=== PATIENT | male | born 1945 | race Caucasian/White ===

== ENCOUNTER 2019-01-24 12:50 | Observation (INO) ==
[2019-01-24 14:10] LABS: Basophils # (auto) 0.03 K/uL (0-0.2); Basophils % (auto) 0.5 %; Eosinophils # (auto) 0.12 K/uL (0-0.5); Eosinophils % (auto) 1.9 %; Hematocrit (blood only) 45.4 % (42-52); Hemoglobin 15.7 g/dL (14.0-18.0); Immature Granulocytes # (auto) 0.05 K/uL (0.00-0.02); Immature Granulocytes % (auto) 0.8 %; Lymphocytes # (auto) 1.51 K/uL (1.2-3.4); Lymphocytes % (auto) 24.2 %; Mean Corpuscular Hgb Conc 34.6 g/dL (32-36); Mean Corpuscular Volume 89.7 fL (80-100); Mean Platelet Volume 8.5 fL (7.4-10.4); Monocytes # (auto) 0.46 K/uL (0.11-0.59); Monocytes % (auto) 7.4 %; Neutrophils # (auto) 4.06 K/uL (1.4-6.5); Neutrophils % (auto) 65.2 %; Platelet Count 168 K/uL (130-400); RDW Coefficient of Variation 14.2 % (11.5-14.5); RDW Standard Deviation 46.3 fL (36.4-46.3); Red Blood Count 5.06 M/uL (4.7-6.1); White Blood Count 6.23 K/uL (4.8-10.8)
[2019-01-24] MEDS ORDERED: NITROGLYCERIN SL 0.4 MG/TAB TAB SL STA (14:13)
[2019-01-24] MEDS ORDERED: ACETAMINOPHEN 500 MG TAB PO STA (14:13)
[2019-01-24] MEDS ORDERED: ASPIRIN CHEW 324 MG PO STA (14:13)
[2019-01-24] MEDS ORDERED: NITROGLYCERIN SL 0.4 MG/TAB TAB SL PRN ×2 (14:13→21:43)
--- NOTE | 2019-01-24 14:32 | XRay Report ---
SINGLE VIEW CHEST CLINICAL HISTORY: Atypical chest pain. FINDINGS: An AP, portable, upright chest radiograph is obtained. No prior studies are available for c omparison at the time of dictation. The examination is degraded by portable technique and patient rot ation. The heart is enlarged noting atherosclerotic calcification of the thoracic aorta. The pulmona ry vasculature is noncongested. There is mild left basilar atelectasis. The lungs and pleural spaces are otherwise clear. No pneumothorax is seen. The skeletal structures are osteopenic. The bony thorax is grossly intact. IMPRESSION: Cardiomegaly with no acute cardiopulmonary abnormality. Electronically signed by: Jm Aguirre M.D. 01/24/2019 2:31 PM
[2019-01-24 14:34] LABS: Alanine Aminotransferase 28 U/L (12-78); Albumin Level 3.9 gm/dl (3.4-5.0); Alkaline Phosphatase 87 U/L (45-117); Aspartate Aminotransferase 21 U/L (15-37); BUN Creatinine Ratio 13.6 (10-20); Bilirubin,Total 0.4 mg/dl (0.2-1); Blood Urea Nitrogen 15 mg/dl (7-18); Calcium 9.8 mg/dl (8.5-10.1); Carbon Dioxide 27 mmol/L (21-32); Chloride 110 mmol/L (98-107); Creatinine Clr Calc Pharmacy 62.4 ml/min; Globulin 3.9 gm/dl (2.5-4.0); Glucose 99 mg/dl (70-99); Lipase 192 U/L (73-393); Potassium 4.2 mmol/L (3.5-5.1); Sodium 146 mmol/L (136-145); Total Protein 7.8 gm/dl (6.4-8.2); Troponin I < 0.015 ng/ml (0-0.045)
--- NOTE | 2019-01-24 18:02 | Emergency Department Note ---
Entered by Kina Vasquez acting as a scribe for History of Present Illness General Chief complaint: Chest Pain Stated complaint: CHEST TIGHTNESS, LT SHOULDER PAIN- CARDIAC HX Time Seen by Provider: 01/24/19 13:24 Source: patient and family () History of Present Illness Onset (ago): day(s) 4 Location: chest Radiation: other (left shoulder) Severity: similar to prior episodes (when he had a stent placed in 2011 ) Quality: + other (chest pain, (like a guitar string)) Associated symptoms: + other (Positive neck tightness. Negative recent trauma to his neck, recent swelling in his legs); no cough and no fever/chills The patient is a 73 white male w/ PMHx of 1 heart stent who presents to the ED w/ CC of chest pain beginning 4 days [employer]. He notes that beginning 4 days ago, his chest began hurting which he describes as an ache with radiation to his left arm. Currently, the patient states his neck feels tight, "like a guitar string." He reports that this episode of chest pain feels similar to when he needed to have a stent placed in 2011. Pt denies any cough, fevers, chills, recent trauma to his neck, recent swelling in his legs. He notes that 4 days ago, he went to the ED in [place] and was there until 1500 that day. He reports they did 3 blood tests and 2 EKGs and there was an abnormality on one of them. Home Medications Home Medications Medication Instructions Recorded Confirmed Type Zyrtec 10 mg PO DAILY 01/24/19 01/24/19 History aspirin 81 mg PO DAILY 01/24/19 01/24/19 History nmje-bnwkls-eogqghbt-D3-C-Mn 1 cap PO DAILY 01/24/19 01/24/19 History magnesium 250 mg PO DAILY 01/24/19 01/24/19 History omeprazole 0 mg PO DAILY 01/24/19 01/24/19 History potassium 0 mg PO DAILY 01/24/19 01/24/19 History sucralfate 0 g PO DAILY 01/24/19 01/24/19 History turmeric 400 mg PO DAILY 01/24/19 01/24/19 History cyclobenzaprine 5 mg PO BID PRN 3 Days #6 tab 01/25/19 Rx nitroglycerin [Nitrostat] 0.4 mg SUBLINGUAL Q5M PRN 3 Days 01/25/19 Rx #10 tab Allergies Allergy/AdvReac Type Severity Reaction Status Date / Time wheat Allergy Severe Unknown Verified 01/25/19 09:25 red dye AdvReac Mild Hives Unverified 01/24/19 14:28 Past Med/Surg History Medical History No significant past medical history Surgical History H/O heart artery stent Family History Other Family history non-contributory Social History Preferred Language: Albanian Communication Ability: Effective Release Manager Required: No Beliefs That Will Affect Care: None marital status: Current Living Situation: Alone Feels Safe at Home: Yes Smoking Status: Never smoker Second Hand Exposure: No ; Hx Alcohol Use: Yes Alcohol type: beer Hx Substance Use: No Review of Systems See HPI for pertinent positives & negatives. and A total of 10 systems reviewed and were otherwise negative Physical Exam Vital Signs Vital Signs - 24 hr 01/24/19 19:30 01/24/19 20:00 01/24/19 20:30 Pulse Rate 61 59 L 63 Pulse Rate from SpO2 Sensor 59 L 58 L 65 Respiratory Rate 20 14 18 Blood Pressure 127/61 130/58 L 132/64 Blood Pressure Mean 83 82 86 Pulse Oximetry 95 96 94 GENERAL: Well appearing, well nourished, NAD, non-toxic. Wearing glasses. EYE EXAM: Normal conjunctiva. PERRL, no anisocoria and EOM's grossly intact w/o pain. OROPHARYNX: Moist mucous membranes. Grossly normal dentition. NECK: Supple, no nuchal rigidity, no adenopathy, non-tender. No signs of meningismus. LUNGS: Clear to auscultation. Normal chest wall mechanics. HEART: NSR, no MRG. ABDOMEN: Abdomen soft, non-tender, normo-active bowel sounds, no masses, no rebound or guarding. BACK: No CVA TTP. SKIN: No rashes and no bruising. UPPER EXTREMITIES: Upper extremities are grossly normal. LOWER EXTREMITIES: No pitting edema. No calf pain. Negative Homans sign NEURO EXAM: A&O x3, cranial nerves II-XII grossly intact, normal speech, moves all 4 extremities on command w/o issue. Course 1342: Past medical records reviewed. The patient was evaluated in room C7. A complete history and physical exam was performed. 1416: On 01/20/19, his troponin was not elevated. 1530: I checked on the patient at this time. His chest pain is resolved. 1535: Heart score of 6. Puts him at moderate risk for a cardiac event. 1550: I discussed the patients case with Dr. Dumont, [facility] Hospitalist. She will evaluate the patient for further management. 1625: Nursing staff states he had a reoccurrence of chest pain. Will repeat Nitro. Administered Medications Discontinued Medications Acetaminophen (Tylenol) 1,000 mg PO NOW STA Stop: 01/24/19 14:14 Last Admin: 01/24/19 14:22 Dose: 1,000 mg Documented by: [id number] Aspirin (Aspirin) 324 mg PO NOW STA Stop: 01/24/19 14:14 Last Admin: 01/24/19 14:22 Dose: 324 mg Documented by: [id number] Aspirin (Ecotrin Ectab) 81 mg PO DAILY TATY Stop: 02/24/19 08:59 Last Admin: 01/25/19 10:26 Dose: 81 mg Documented by: [id number] Cetirizine HCl (Zyrtec) 10 mg PO DAILY TATY Stop: 02/24/19 08:59 Last Admin: 01/25/19 10:26 Dose: 10 mg Documented by: [id number] Enoxaparin Sodium (Lovenox) 40 mg SQ Q24H TATY Stop: 02/24/19 08:59 Last Admin: 01/25/19 10:26 Dose: 40 mg Documented by: [id number] Magnesium Oxide (Mag-Ox) 400 mg PO DAILY TATY Stop: 02/24/19 08:59 Last Admin: 01/25/19 10:26 Dose: 400 mg Documented by: [id number] Miscellaneous (Order Awaiting Action) 1 ea N/A QS TATY Stop: 02/24/19 00:00 Last Admin: 01/25/19 15:55 Dose: Not Given Documented by: [id number] Admin: 01/25/19 10:29 Dose: Not Given Documented by: [id number] Admin: 01/24/19 23:16 Dose: Not Given Documented by: [id number] Nitroglycerin (Nitrostat) 0.4 mg SL NOW STA Stop: 01/24/19 14:14 Last Admin: 01/24/19 14:22 Dose: 0.4 mg Documented by: [id number] Nitroglycerin (Nitrostat) 0.4 mg SL PRN PRN PRN Reason: Chest Pain Stop: 02/23/19 14:12 Last Admin: 01/24/19 16:24 Dose: 0.4 mg Documented by: [id number] Pantoprazole Sodium (Protonix) 40 mg PO DAILY TATY Stop: 02/24/19 08:59 Last Admin: 01/25/19 10:26 Dose: 40 mg Documented by: [id number] Sucralfate (Carafate Tab) 0 gm PO DAILY TATY Stop: 02/24/19 08:59 Last Admin: 01/25/19 10:25 Dose: 1 gm Documented by: [id number] Medical Decision Making Medical Records Attestation: I reviewed the patient's medical records. Home Medications Current Medication List: was personally reviewed by me Laboratory Data Attestation: I reviewed the patient's lab results. Result diagrams: 01/25/19 03:53 01/25/19 03:53 Lab Results 01/24/19 01/24/19 Range/Units 13:49 13:49 WBC 6.23 (4.8-10.8) K/uL RBC 5.06 (4.7-6.1) M/uL Hgb 15.7 (14.0-18.0) g/dL Hct 45.4 (42-52) % MCV 89.7 (80-100) fL MCH 31.0 (25-34) pg MCHC 34.6 (32-36) g/dL RDW Std Deviation 46.3 (36.4-46.3) fL RDW Coeff of Shellie 14.2 (11.5-14.5) % Plt Count 168 (130-400) K/uL MPV 8.5 (7.4-10.4) fL Immature Gran % (Auto) 0.8 % Neut % (Auto) 65.2 % Lymph % (Auto) 24.2 % [place] % (Auto) 7.4 % Eos % (Auto) 1.9 % Baso % (Auto) 0.5 % Immature Gran # (Auto) 0.05 H (0.00-0.02) K/uL Neut # (Auto) 4.06 (1.4-6.5) K/uL Lymph # (Auto) 1.51 (1.2-3.4) K/uL [place] # (Auto) 0.46 (0.11-0.59) K/uL Eos # (Auto) 0.12 (0-0.5) K/uL Baso # (Auto) 0.03 (0-0.2) K/uL Sodium 146 H (136-145) mmol/L Potassium 4.2 (3.5-5.1) mmol/L Chloride 110 H (98-107) mmol/L Carbon Dioxide 27 (21-32) mmol/L Anion Gap 9.0 (3-11) BUN 15 (7-18) mg/dl Creatinine 1.07 (0.6-1.4) mg/dl Est Cr Clr Drug Dosing 62.4 ml/min Est GFR ( Amer) 80.0 Est GFR (Non-Af Amer) 69.0 BUN/Creatinine Ratio 13.6 (10-20) Glucose 99 (70-99) mg/dl Calcium 9.8 (8.5-10.1) mg/dl Total Bilirubin 0.4 (0.2-1) mg/dl AST 21 (15-37) U/L ALT 28 (12-78) U/L Alkaline Phosphatase 87 (45-117) U/L Troponin I < 0.015 (0-0.045) ng/ml Total Protein 7.8 (6.4-8.2) gm/dl Albumin 3.9 (3.4-5.0) gm/dl Globulin 3.9 (2.5-4.0) gm/dl Albumin/Globulin Ratio 1.0 (0.9-2) Lipase 192 (73-393) U/L Specimen Hemolysis Imaging Data Radiologist's Impression: Radiology results as stated below per my review and the radiologist's interpretation: SINGLE VIEW CHEST CLINICAL HISTORY: Atypical chest pain. FINDINGS: An AP, portable, upright chest radiograph is obtained. No prior studies are available for comparison at the time of dictation. The examination is degraded by portable technique and patient rotation. The heart is enlarged noting atherosclerotic calcification of the thoracic aorta. The pulmonary vasculature is noncongested. There is mild left basilar atelectasis. The lungs and pleural spaces are otherwise clear. No pneumothorax is seen. The skeletal structures are osteopenic. The bony thorax is grossly intact. IMPRESSION: Cardiomegaly with no acute cardiopulmonary abnormality. Electronically signed by: Jm Aguirre M.D. 01/24/2019 2:31 PM ECG Data Attestation: I personally reviewed and interpreted this ECG as follows: Indication: chest pain Rate (beats per minute): 64 Rhythm: normal sinus Findings: + other (wide QRS, no ST segment changes ) and + RBBB; no T-wave inversion Additional Comments: Repeat EKG done at 1627: unchanged when compared to prior Blood Pressure Blood Pressure Findings: Elevated blood pressure Blood Pressure Disposition: further management by hospitalist MDM Narrative The patient is a 73 white male w/ PMHx of 1 heart stent who presents to the ED w/ CC of chest pain beginning 4 days [employer]. Differential diagnosis: Etiologies such as cardiac ischemia, aortic dissection, pulmonary embolism, pneumonia, pneumothorax, musculoskeletal, infections, pericarditis, myocarditis, esophageal rupture, gastrointestinal, as well as others were entertained. Patient was seen and evaluated the bedside. The patient does have a known history of CAD status post stent placement in 2011 in [facility] wit h a stent to the left circumflex. The patient does take a baby aspirin. Patient does have hypertension hyperlipidemia. The patient states that his symptoms are similar to when he required a prior stent in 2011. Patient does complain of some left-sided chest pain with radiation to the neck. The patient has had nausea but no diaphoresis or vomiting. Patient is unsure as whether or not it is exertional. Patient did have a recent episode observation at a small emergency department that did not have a neurology tech on staff. Patient reportedly had negative troponins and was discharged. Patient did not have any more provocative testing. Patient's EKG shows nonspecific changes no prior to compare to. Troponin is undetectable. The patient did receive nitro and aspirin he had resolution of his chest pain. Patient does have a heart score of 6 the decision was made for the patient to be observed with continued trending of his enzymes and likely cardiology consultation in the morning. Patient was admitted to the medicine service for observation treatment. Prior to going to his room patient did have a recurrence of chest pain for which she did receive nitro. The patient's repeat EKG did not show any acute changes. Patient was admitted to the medicine service. Impression & Plan Atypical chest pain, History of coronary artery stent placement Discharge Plan Visit Data *Final* Discharge Date/Time: 01/24/19 21:16 Chief Complaint: Chest Pain Stated Complaint: CHEST TIGHTNESS, LT SHOULDER PAIN- CARDIAC HX ED Provider: Terry Rob Discharge Problem: Atypical chest pain, History of coronary artery stent placement Patient Disposition: Admitted As Inpatient Condition: Good Discharge Instructions Interventions: ED Discharge Assessment Last Done: 01/24/19 21:16 The scribe's documentation has been prepared under my direction and personally reviewed by me in its entirety. I confirm that the note above accurately reflects all work, treatment, procedures, and medical decision making performed by me.
--- NOTE | 2019-01-24 20:58 | History & Physical Report ---
Date of Service January 24, 2019 Assessment & Plan (1) Atypical chest pain: Admit to PCU on telemetry for observation Vital signs every 4 hours Troponin every 6 hours with EKG Lipid panel A1c, TSH, CBC CMP BNP TTE DVT prophylaxis with Lovenox 40 mg subcu 2 daily Full code Present on Admission?: Yes (2) History of coronary artery stent placement: Continue aspirin 81 p.o. daily, patient is not taking anything for hypercholesterolemia he states that he is sensitive to statins and that is why he does not take it. He reports being confused and statins. History of Present Illness Chief Complaint: Chest pain Primary Care Provider: NO PCP Patient is a 73 years old male with past medical history of coronary artery stent placed in 2011. Patient reports that his pain started around 3 AM and lasted up until 7AM when his called ambulance. Patient said that pain has been ongoing for 4 days. He describes pain that is radiated to his neck and his left arm. After he arrived in the emergency room he reports no chest pain anymore. The chest pain patient experienced at 3 AM this morning is similar to one that he experienced in [address] the stent was placed. Patient denies fever chills headache chest pain at this time abdominal pain frequency urgency recent trauma to his neck swelling of his lower extremities syncope and near syncope. Labs are reviewed: CBC normal, sodium slightly elevated 146 potassium 4.2 chloride 110 creatinine 1.07 GFR 69, troponin less than 0.015. EKG normal sinus rhythm with right bundle branch block there is no other EKG for comparison. Chest x-rays cardiomegaly with no acute cardiopulmonary abnormality. The case was discussed and decision was made to admit patient for observation on telemetry to rule out ACS. Allergies Allergy/AdvReac Type Severity Reaction Status Date / Time red dye AdvReac Mild Hives Unverified 01/24/19 14:28 Home Medications Home Medications Medication Instructions Recorded Confirmed Type aspirin 81 mg PO DAILY 01/24/19 01/24/19 History cetirizine [Zyrtec] 10 mg PO DAILY 01/24/19 01/24/19 History uyju-rlthyl-padvunpn-D3-C-Mn 1 cap PO DAILY 01/24/19 01/24/19 History magnesium 250 mg PO DAILY 01/24/19 01/24/19 History omeprazole 0 mg PO DAILY 01/24/19 01/24/19 History potassium 0 mg PO DAILY 01/24/19 01/24/19 History sucralfate 0 g PO DAILY 01/24/19 01/24/19 History turmeric 400 mg PO DAILY 01/24/19 01/24/19 History Past Med/Surg History Medical History No significant past medical history Surgical History H/O heart artery stent Family History Other Family history non-contributory Social History marital status: Feels Safe at Home: Yes Smoking Status: Never smoker Review of Systems Review of Systems: All systems reviewed & are unremarkable except as noted in HPI & below Physical Exam Constitutional: WD/WN, vitals as above well developed Eyes: PERRL, conjunctivae normal, anicteric sclerae ENMT: external ear and nose normal, oropharynx normal Neck: trachea midline, no thyromegaly Respiratory: normal respiratory effort, lungs clear to auscultation Cardiovascular: RRR, no murmur, no edema Gastrointestinal (Abdomen): normal bowel sounds, soft, nontender, no hepatosplenomegaly Musculoskeletal: no cyanosis or clubbing, extremities motor strength 5/5 Skin: no rashes, warm and dry Neurologic: patellar DTR's 2+ bilat, sensation intact Psychiatric: A+Ox3, euthymic affect Lymphatic: no cervical or axillary lymphadenopathy Results & Data Vital Signs (Past 12 Hours) Vital Signs Temp Pulse Pulse Resp BP BP Pulse Ox 01/24/19 19:30 61 20 127/61 95 01/24/19 18:30 20 134/61 97 01/24/19 18:14 57 L 16 128/67 96 01/24/19 18:00 58 L 18 128/67 97 01/24/19 16:29 66 18 119/61 93 01/24/19 15:52 69 18 108/69 98 01/24/19 14:30 62 18 134/68 99 01/24/19 13:00 37 C 66 20 128/70 98 Code Status & VTE Plan Code Status Full code VTE Prophylaxis Plan VTE Prophylaxis will be ordered: Yes PG Care Time/CCT Total # of Minutes Spent Total Time Spent with Patient: Total time spent is greater than 50% in coordination of care (as documented) at patient's floor/unit and/or counseling patient:
[2019-01-24] MEDS ORDERED: ACETAMINOPHEN 325 MG TAB PO PRN (21:43)
[2019-01-24] MEDS ORDERED: ZOLPIDEM TARTRATE 5 MG TAB PO PRN (21:43)
[2019-01-24] MEDS ORDERED: POLYETHYLENE (MIRALAX) 17 GM PACK PO PRN (21:43)
[2019-01-25 04:21] LABS: Basophils # (auto) 0.01 K/uL (0-0.2); Basophils % (auto) 0.2 %; Eosinophils # (auto) 0.15 K/uL (0-0.5); Hematocrit (blood only) 40.9 % (42-52); Hemoglobin 14.2 g/dL (14.0-18.0); Immature Granulocytes # (auto) 0.05 K/uL (0.00-0.02); Lymphocytes # (auto) 1.68 K/uL (1.2-3.4); Lymphocytes % (auto) 33.4 %; Mean Corpuscular Hemoglobin 30.8 pg (25-34); Mean Corpuscular Hgb Conc 34.7 g/dL (32-36); Mean Corpuscular Volume 88.7 fL (80-100); Mean Platelet Volume 8.1 fL (7.4-10.4); Monocytes # (auto) 0.56 K/uL (0.11-0.59); Monocytes % (auto) 11.1 %; Neutrophils # (auto) 2.58 K/uL (1.4-6.5); Neutrophils % (auto) 51.3 %; Platelet Count 139 K/uL (130-400); RDW Standard Deviation 45.3 fL (36.4-46.3); Red Blood Count 4.61 M/uL (4.7-6.1); White Blood Count 5.03 K/uL (4.8-10.8)
[2019-01-25 04:42] LABS: Alanine Aminotransferase 22 U/L (12-78); Albumin Level 3.1 gm/dl (3.4-5.0); Aspartate Aminotransferase 14 U/L (15-37); BUN Creatinine Ratio 18.1 (10-20); Blood Urea Nitrogen 18 mg/dl (7-18); Calcium 9.1 mg/dl (8.5-10.1); Carbon Dioxide 26 mmol/L (21-32); Chloride 111 mmol/L (98-107); Cholesterol 197 mg/dl (0-200); Creatinine Clr Calc Pharmacy 77.4 ml/min; Est GFR (African American) 88.9; Est GFR (Non-African American) 76.7; Glucose 86 mg/dl (70-99); Potassium 3.9 mmol/L (3.5-5.1); Sodium 145 mmol/L (136-145); Triglycerides 322 mg/dl (0-150); VLDL Cholesterol 64 mg/dl
[2019-01-25 04:48] LABS: Alkaline Phosphatase 67 U/L (45-117); Bilirubin,Total 0.4 mg/dl (0.2-1); Chol HDL Ratio 5; Globulin 3.3 gm/dl (2.5-4.0); HDL Cholesterol 41 mg/dl; LDL Cholesterol Calculated 92 mg/dl; NT Pro B Type Natriuretic Pept 58 pg/ml (0-900); Total Protein 6.4 gm/dl (6.4-8.2); Troponin I < 0.015 ng/ml (0-0.045)
[2019-01-25 06:27] LABS: Estimated Average Glucose 105 mg/dl; Hemoglobin A1C 5.3 % (4.5-5.6)
[2019-01-25] MEDS ORDERED: PANTOprazole 40 MG TAB PO SCH (09:00)
[2019-01-25] MEDS ORDERED: GLUC CHONDR COLLAGEN D3 C MN PO SCH (09:00)
[2019-01-25] MEDS ORDERED: NON-FORMULARY MEDICATION (Turmeric 400 MG) PO SCH (09:00)
[2019-01-25] MEDS ORDERED: ASPIRIN 81 MG ECTAB PO SCH (09:00)
[2019-01-25] MEDS ORDERED: ENOXAPARIN INJ 40 MG/0.4 ML SYR SQ SCH (09:00)
[2019-01-25] MEDS ORDERED: CETIRIZINE HCL 10 MG TABLET PO SCH (09:00)
[2019-01-25] MEDS ORDERED: SUCRALFATE 1 GM TAB PO SCH (09:00)
[2019-01-25] MEDS ORDERED: MAGNESIUM OXIDE 400 MG TAB PO SCH (09:00)
[2019-01-25] MEDS ORDERED: CYCLOBENZAPRINE HCL 5 MG TAB PO PRN (10:16)
--- NOTE | 2019-01-25 12:35 | Cardiology Consultation ---
Date of Consultation January 25, 2019 Assessment & Plan (1) Atypical chest pain: While the character of his chest pain is concerning for ischemia or coronary insufficiency, the extended duration of his symptoms without elevation of his biomarkers suggests otherwise. I do not believe this was cardiac in nature. It is possible this represents a gastrointestinal disturbance does have a history of reflux and esophageal spasm. He does not have symptoms otherwise of coronary artery disease such as coronary insufficiency or angina with activity. His echocardiogram did not demonstrate any wall motion abnormalities. Based on the nature of the symptoms, his good exercise tolerance and the normal biomarkers, I do not feel he requires any additional evaluation as an inpatient. (2) Coronary artery disease: He does not have other symptoms suggestive of coronary insufficiency or recurrent stenosis. His medical regimen consists only of aspirin. It seems that in the past he has tried both rosuvastatin and atorvastatin with adverse side effects. He was referred for Repatha and is working on obtaining this through the [facility] system. (3) Aortic regurgitation: Moderate on current echocardiogram. Preserved LV systolic function without significant chamber dilation. This can be monitored over time. History of Present Illness Reason for Consultation: Chest pain Requesting Physician: Yanira Attending Physician: Katheryn Doyle MD History of Present Illness Patient is a 71-year-old gentle with history of coronary disease having previously undergone percutaneous intervention in 2011. It seems at that time the patient had an episode neck and jaw discomfort which prompted hospitalization. He previously undergone stress testing which was normal and subsequently underwent coronary angiography which revealed the aforementioned stenosis. Since that time the patient is actually done quite well. He is a very active individual who was accustomed to strenuous activity. Recently he was digging a ditch and working on his home without symptoms of chest discomfort or limiting dyspnea. He generally does not have symptoms of chest discomfort. However, approximately 4 days ago while at rest he began to experience symptoms of substernal chest pressure with neck and jaw discomfort as well. The symptoms prompted an evaluation in local hospital. That evaluation was unrevealing and the patient was sent home. His symptoms persisted and he sought medical attention at our facility. Seems that the use of nitroglycerin both previously and at the time of his admission here to did not relieve his symptoms. I did produce a headache. Symptoms appear to have resolved without any specific intervention is currently pain-free. He does have some persistent left scapular discomfort. He believes this is related to muscle pain. He denies any history of palpitation. He denies dizziness or lightheadedness. He has not suffered syncope. He denies orthopnea but does keep his bed elevated slightly due to reflux. He will get occasional symptoms of esophageal spasm but these appear to be quite rare. Allergies Allergy/AdvReac Type Severity Reaction Status Date / Time wheat Allergy Severe Unknown Verified 01/25/19 09:25 red dye AdvReac Mild Hives Unverified 01/24/19 14:28 Home Medications Home Medications Medication Instructions Recorded Confirmed Type aspirin 81 mg PO DAILY 01/24/19 01/24/19 History cetirizine [Zyrtec] 10 mg PO DAILY 01/24/19 01/24/19 History devs-[id number]-[id number]-D3-C-Mn 1 cap PO DAILY 01/24/19 01/24/19 History magnesium 250 mg PO DAILY 01/24/19 01/24/19 History omeprazole 0 mg PO DAILY 01/24/19 01/24/19 History potassium 0 mg PO DAILY 01/24/19 01/24/19 History sucralfate 0 g PO DAILY 01/24/19 01/24/19 History turmeric 400 mg PO DAILY 01/24/19 01/24/19 History Patient History Medical History No significant past medical history Surgical History H/O heart artery stent Family History Other Family history non-contributory Social History Preferred Language: Japanese Communication Ability: Effective Register Repairer Required: No Beliefs That Will Affect Care: None marital status: Current Living Situation: Alone Feels Safe at Home: Yes Smoking Status: Never smoker Second Hand Exposure: No ; Hx Alcohol Use: Yes Alcohol type: beer Hx Substance Use: No Review of Systems Review of Systems: All systems reviewed & are unremarkable except as noted in HPI & below Per HPI. He does not report dysphagia or odynophagia. He has normal bowel habits and is not constipated. Physical Exam Physical Exam: The patient is alert and oriented. Mood and affect appeared normal. He answered all questions appropriately. HEENT: Pupils are equal and reactive to light and accommodation. Extraocular movements are intact. The sclerae are anicteric. Neuro: Cranial nerves intact Neck: Patient's neck is supple. He has palpable carotid pulses bilaterally without bruits on auscultation. There is no evidence of jugular venous distention. The thyroid is not enlarged. Lungs: Clear to auscultation bilaterally. He has good air movement without use of accessory muscles. No rales wheezes or rhonchi. Cardiac: Heart demonstrates a regular rate and rhythm. Normal S1 and S2. Soft ejection murmur. Pulses: The patient has palpable radial pulses bilaterally that are equal in intensity Extremities: There was no evidence of hypoperfusion. There is no cyanosis or c lubbing. There is no edema. Skin: I did not appreciate any rashes on examination today. Results & Data Vital Signs (Past 12 Hours) Vital Signs Temp Pulse Pulse Resp BP Pulse Ox 01/25/19 11:23 36.5 C 61 18 134/71 95 01/25/19 07:04 36.4 C L 50 L 17 123/66 95 01/25/19 04:41 36.5 C 58 L 16 125/77 Laboratory Results Abnormal Lab Results 01/24/19 01/24/19 01/24/19 13:49 13:49 21:46 WBC 6.23 RBC 5.06 Hgb 15.7 Hct 45.4 MCV 89.7 MCH 31.0 MCHC 34.6 RDW Std Deviation 46.3 RDW Coeff of Shellie 14.2 Plt Count 168 MPV 8.5 Immature Gran % (Auto) 0.8 Neut % (Auto) 65.2 Lymph % (Auto) 24.2 [place] % (Auto) 7.4 Eos % (Auto) 1.9 Baso % (Auto) 0.5 Immature Gran # (Auto) 0.05 H Neut # (Auto) 4.06 Lymph # (Auto) 1.51 [place] # (Auto) 0.46 Eos # (Auto) 0.12 Baso # (Auto) 0.03 Sodium 146 H Potassium 4.2 Chloride 110 H Carbon Dioxide 27 Anion Gap 9.0 BUN 15 Creatinine 1.07 Est Cr Clr Drug Dosing 62.4 Est GFR ( Amer) 80.0 Est GFR (Non-Af Amer) 69.0 BUN/Creatinine Ratio 13.6 Glucose 99 Estimat Average Glucose Hemoglobin A1c Calcium 9.8 Total Bilirubin 0.4 AST 21 ALT 28 Alkaline Phosphatase 87 Troponin I < 0.015 < 0.015 NT-Pro-B Natriuret Pep Total Protein 7.8 Albumin 3.9 Globulin 3.9 Albumin/Globulin Ratio 1.0 Triglycerides Cholesterol LDL Cholesterol, Calc VLDL Cholesterol, Calc HDL Cholesterol Cholesterol/HDL Ratio Lipase 192 Specimen Hemolysis 01/25/19 01/25/19 01/25/19 03:53 03:53 03:53 WBC 5.03 RBC 4.61 L Hgb 14.2 Hct 40.9 L MCV 88.7 MCH 30.8 MCHC 34.7 RDW Std Deviation 45.3 RDW Coeff of Shellie 14.0 Plt Count 139 MPV 8.1 Immature Gran % (Auto) 1.0 Neut % (Auto) 51.3 Lymph % (Auto) 33.4 [place] % (Auto) 11.1 Eos % (Auto) 3.0 Baso % (Auto) 0.2 Immature Gran # (Auto) 0.05 H Neut # (Auto) 2.58 Lymph # (Auto) 1.68 [place] # (Auto) 0.56 Eos # (Auto) 0.15 Baso # (Auto) 0.01 Sodium 145 Potassium 3.9 Chloride 111 H Carbon Dioxide 26 Anion Gap 9.0 BUN 18 Creatinine 0.98 Est Cr Clr Drug Dosing 77.4 Est GFR ( Amer) 88.9 Est GFR (Non-Af Amer) 76.7 BUN/Creatinine Ratio 18.1 Glucose 86 Estimat Average Glucose 105 Hemoglobin A1c 5.3 Calcium 9.1 Total Bilirubin 0.4 AST 14 L ALT 22 Alkaline Phosphatase 67 Troponin I < 0.015 NT-Pro-B Natriuret Pep 58 Total Protein 6.4 Albumin 3.1 L Globulin 3.3 Albumin/Globulin Ratio 1.0 Triglycerides 322 H Cholesterol 197 LDL Cholesterol, Calc 92 VLDL Cholesterol, Calc 64 HDL Cholesterol 41 Cholesterol/HDL Ratio 5 Lipase Specimen Hemolysis 01/25/19 09:46 WBC RBC Hgb Hct MCV MCH MCHC RDW Std Deviation RDW Coeff of Shellie Plt Count MPV Immature Gran % (Auto) Neut % (Auto) Lymph % (Auto) [place] % (Auto) Eos % (Auto) Baso % (Auto) Immature Gran # (Auto) Neut # (Auto) Lymph # (Auto) [place] # (Auto) Eos # (Auto) Baso # (Auto) Sodium Potassium Chloride Carbon Dioxide Anion Gap BUN Creatinine Est Cr Clr Drug Dosing Est GFR ( Amer) Est GFR (Non-Af Amer) BUN/Creatinine Ratio Glucose Estimat Average Glucose Hemoglobin A1c Calcium Total Bilirubin AST ALT Alkaline Phosphatase Troponin I < 0.015 NT-Pro-B Natriuret Pep Total Protein Albumin Globulin Albumin/Globulin Ratio Triglycerides Cholesterol LDL Cholesterol, Calc VLDL Cholesterol, Calc HDL Cholesterol Cholesterol/HDL Ratio Lipase Specimen Hemolysis Diagnostic Findings Chest x-ray the time of admission at [facility] acute cardiopulmonary disease Echocardiogram demonstrated preserved LV systolic function with moderate aortic regurgitation. No wall motion abnormalities. ECG Additional Comments: Right bundle branch block. Sinus rhythm. No significant ST or T-wave changes PG Care Time/CCT Total # of Minutes Spent Total Time Spent with Patient: Total time spent is greater than 50% in coordination of care (as documented) at patient's floor/unit and/or counseling patient:
--- NOTE | 2019-01-25 16:08 | Discharge Summary ---
Date of Service January 25, 2019 Admission HPI Per Admitting Provider Patient is a 73 years old male with past medical history of coronary artery stent placed in 2011. Patient reports that his pain started around 3 AM and lasted up until 7AM when his called ambulance. Patient said that pain has been ongoing for 4 days. He describes pain that is radiated to his neck and his left arm. After he arrived in the emergency room he reports no chest pain anymore. The chest pain patient experienced at 3 AM this morning is similar to one that he experienced in [address] the stent was placed. Patient denies fever chills headache chest pain at this time abdominal pain frequency urgency recent trauma to his neck swelling of his lower extremities syncope and near syncope. Labs are reviewed: CBC normal, sodium slightly elevated 146 potassium 4.2 chloride 110 creatinine 1.07 GFR 69, troponin less than 0.015. EKG normal sinus rhythm with right bundle branch block there is no other EKG for comparison. Chest x-rays cardiomegaly with no acute cardiopulmonary abnormality. The case was discussed and decision was made to admit patient for observation on telemetry to rule out ACS. Admission Exam Per Admitting Provider Constitutional: WD/WN, vitals as above well developed Eyes: PERRL, conjunctivae normal, anicteric sclerae ENMT: external ear and nose normal, oropharynx normal Neck: trachea midline, no thyromegaly Respiratory: normal respiratory effort, lungs clear to auscultation Cardiovascular: RRR, no murmur, no edema Gastrointestinal (Abdomen): normal bowel sounds, soft, nontender, no hepatosplenomegaly Musculoskeletal: no cyanosis or clubbing, extremities motor strength 5/5 Skin: no rashes, warm and dry Neurologic: patellar DTR's 2+ bilat, sensation intact Psychiatric: A+Ox3, euthymic affect Lymphatic: no cervical or axillary lymphadenopathy Principal Diagnosis Atypical Chest Pain Discharge Exam General: Resting comfortably HEENT: NC/AT; PERRLA with EOMI; [place] conjunctiva, MMM. No erythema of posterior pharynx Neck: Supple and nontender Cardiac: RRR Lungs: CTA bilaterally Abdomen: Bowel normoactive X 4; Nontender to palpation Back: Tender to palpation over left upper back/shoulder with muscle spasm/point tenderness noted. Extremities: Warm. No edema present Neuro: No focal weakness, muscle strength +4/5 bilat in UE and LE. Skin: No rash Discharge Data Allergies Allergy/AdvReac Type Severity Reaction Status Date / Time wheat Allergy Severe Unknown Verified 01/25/19 09:25 red dye AdvReac Mild Hives Unverified 01/24/19 14:28 Consultations 01/24/19 15:51 ED Decision to Admit Stat 01/25/19 09:08 Consult Cardiology Routine Procedures Performed Echocardiogram-preserved LVEF, moderate AI Ordered Studies CXR Hospital Course (1) Atypical chest pain: H/o CAD with stent placement in 2011 Chest pain this episode several days prior to admission here lasted many hours and had negative serial troponins at outside hospital. Since that time, he built a ramp for his house which required considerable manual labor and had no recurrence of chest pain, however he continues to have constant left shoulder posterior pain which is likely MSK in nature Trop neg x 3 here; EKG also negative. Echo showed preserved EF, no wall motion abnormalities. Cardiology consulted, did not recommend further testing as is not cardiac in nature. Pt. follows with survey technologist, Dr. Sawyer, in [place], [place]. Continue Aspirin daily; PA home currently working on obtaining auth for lipid agent Rapatha as pt. has been statin intolerant. Pain may be related to muscle strain/spasm. (2) History of coronary artery stent placement: H/o stent placement in 2011. See above. (3) Muscle strain: Has neck pain -- likely related to left upper back muscle strain.Is tender on palpation Continue heating pad and Flexeril prn Recommend outpatient follow up. Imaging of C-spine was not indicated. Will need to establish care with PCP. (4) Aortic regurgitation: Noted on TTE. Follow as outpt with Cardiology Pt. was stable for discharge on 01/25/19. Total Time Total Time Spent Total Time Spent (In Minutes): >30 minutes Discharge Plan Discharge Items Patient Disposition: Home - Self-Care Reason For Visit: CHEST PAIN Condition on Discharge: Good Activity: As commented below Exercise/Sports: Gradually increase as tolerated Non-emergency contact: Primary Care Provider and Admissions Clerk Follow-up/Referrals: Shady Garnica MD [Physician] - (Follow up with Dr. Garnica of Cardiology if you wish to see a Admissions Clerk in the area.) PCP,NO [Primary Care Provider] - Addtl Stationary Engineer Supervisor Provider Instructions: 1. Atypical Chest Pain * Cardiac work up has been negative during this admission. * Please continue Aspirin 81 mg daily at home. * Please schedule follow up with your survey technologist to discuss this admission. * It is recommended to establish care with a primary care provider in this area as well -- please schedule appointment in 1-2 weeks. 2. Muscle Spasm * Prescription was provided for Flexeril 5 mg twice daily as needed. * Do not drive or operate heavy machinery after using this medication. * Please use a heat pad for relief of muscle related pain. Massage therapy and acupuncture can also be useful with muscular pain. Pending Studies at Discharge: No Stand-Alone Forms: Call Back Authorization, [facility] Medications and DC Order Prescriptions: Continued sucralfate 1 gram Tablet PO DAILY RF: 0 aspirin 81 mg Tablet,Delayed Release (Dr/Ec) 81 mg PO DAILY RF: 0 potassium 99 mg Tablet PO DAILY RF: 0 omeprazole 20 mg Capsule,Delayed Release(Dr/Ec) PO DAILY RF: 0 magnesium 250 mg Tablet 250 mg PO DAILY RF: 0 Zyrtec 10 mg Capsule 10 mg PO DAILY RF: 0 wxmr-ttixig-jqcniwfi-D3-C-Mn 500-400-667 mg-mg-unit Capsule 1 cap PO DAILY RF: 0 turmeric 400 mg Capsule 400 mg PO DAILY RF: 0 Discharge Orders: Discharge Order (Routine); Ordered 01/25/19 Ordered By: Katheryn Doyle Admission Data Admit Date/Time: 01/24/19 20:46 Attending Provider: Katheryn Doyle Admit Provider: Christina Dumont Primary Care Provider: PCP,NO Other Providers: Christina Dumont ; Shady Garnica Other Interventions: Discharge Summary Assessment (RN) Last Done: 01/25/19 16:41 DC Date/Time DO NOT enter until pt leaves facility: 01/25/19 17:10 Supervising Physician Co-Signing Physician Notes PA Supervision Note: I personally saw and examined the patient. I verified all epstein points and agree with ERROL Dee with the following exceptions and/or additions: Pt with persistent mild-mod left posterior shoulder pain, no chest pain since initial episode many days ago. He has exerted himself since that time building a ramp at his house without recurrence of pain. Most likely was GI in nature. Current left shoulder pain is MSK in nature. Plan outlined as above. Stable for discharge to home. Vitals reviewed General: Resting comfortably, NAD HEENT: anicteric sclerae Neck: +TTP over left trapezius with spasm palpable Cardiac: RRR, 2/6 diastolic murmur at RUSB Lungs: CTA bilaterally Abdomen: Bowel normoactive X 4; Nontender to palpation Extremities: Warm. +2 bilat LE edema Neuro: No focal weakness Skin: No rash
== END 2019-01-25 17:10 | disposition home or self-care (01) ==
LOC: 2S 12:50 → ED 12:50 → SUATTDRO 20:46 → 2S 21:16
DX: X58.XXXA Exposure to other specified factors, initial encounter; I51.7 Cardiomegaly; I35.1 Nonrheumatic aortic (valve) insufficiency; Z91.048 Other nonmedicinal substance allergy status; R07.89 Other chest pain; S16.9XXA Unspecified injury of muscle, fascia and tendon at neck level, initial encounter; Z95.5 Presence of coronary angioplasty implant and graft; Z79.899 Other long term (current) drug therapy